=== PATIENT | male | born 1980 | race Caucasian/White ===

== ENCOUNTER 2023-02-08 13:37 | Emergency (ER) | payer OTHER ==
[~2023-02-08] VITALS: Ht 177.8 cm; Wt 79.4 kg
[2023-02-08 14:16] VITALS: BP 134/111
[2023-02-08] MEDS ORDERED: EMVERM100 MG PO (15:52)
[2023-02-09] MEDS ORDERED: EMVERM100 MG PO (14:36)
== END 2023-02-08 16:09 | disposition home or self-care (01) ==
LOC: ER 13:37
DX: B80 Enterobiasis (principal); R14.0 Abdominal distension (gaseous)
CPT/HCPCS: 99282